=== PATIENT | female | born 1945 | race Two or more races ===

== ENCOUNTER 2023-02-03 01:20 | Inpatient (IN) | payer OTHER, MEDICAID ==
[2023-02-03] VITALS (9 sets, daily range): BP systolic 114; BP diastolic 55; PULSE 61–86; RESP 18–22; O2SAT 92–99
[~2023-02-03] VITALS: Ht 175.3 cm; Wt 87.5 kg
[2023-02-03] MEDS ORDERED: IPRATROPIUM BROM 0.5 MG/2.5ML INH SOL NEB ONE (02:30)
[2023-02-03] MEDS ORDERED: ALBUTEROL SULF 2.5 MG/0.5ML(0.5%) NEB SOLN NEB ONE ×2 (02:30→06:15)
[2023-02-03] MEDS ORDERED: ALBUTEROL MEDNEB 2.5 mg/3ml NEB ONE ×3 (02:30→07:43)
[2023-02-03 02:40] LABS: Hemoglobin 11.6 g/dL (12.2-16.2); Mean Corpuscular Hemoglobin 35.4 pg (28.0-32.0); Red Blood Cells 3.27 10^6/uL (4.0-5.20)
[2023-02-03 02:42] LABS: Hematocrit 35.7 % (36.0-46.0); Mean Corpuscular Hgb Conc. 32.4 g/dL (32.0-36.0); Mean Corpuscular Volume 109.3 fL (80.0-100.0); Red Cell Distribution Width 16.6 % (11.8-14.3)
[2023-02-03 02:58] LABS: Alanine Aminotransferase 11 U/L (7-40); Albumin 4.7 g/dL (3.2-4.8); Alkaline Phosphatase 149 U/L (46-116); Anion Gap 8 (5-15); Aspartate Aminotransferase 20 U/L (13-40); BUN/Creatinine Ratio 2.3 (10.0-20.0); Bilirubin, Total 0.3 mg/dL (0.2-1.0); Blood Urea Nitrogen 13 mg/dL (9-23); Calcium 10.5 mg/dL (8.7-10.4); Carbon Dioxide 30 mmol/L (20-30); Chloride 100 mmol/L (98-107); Glucose 107 mg/dL (74-106); Potassium 3.7 mmol/L (3.5-5.1); Sodium 138 mmol/L (136-145); Total Protein 7.7 g/dL (5.7-8.2)
[2023-02-03 03:16] LABS: Band Neutrophils % (manual) 0; Basophils % (manual) 0 (0.0-2.0); Blast Cells 0; Metamyelocytes % 0; Myelocytes % 0; Promyelocytes % 0; Reactive Lymphocytes 0
[2023-02-03 03:26] LABS: INR 1.04 (0.9-1.15); Partial Thromboplastin Time 28.5 SEC (24.5-34.5); Prothrombin Time 10.9 sec (9.3-11.8)
[2023-02-03 03:30] LABS: COVID19 ANTIGEN SOFIA FIA NEGATIVE (NEGATIVE); Rapid Influenza A Negative (Negative); Rapid Influenza B Negative (Negative)
[2023-02-03 04:13] LABS: Eosinophils % (manual) 32 (0-7); Lymphocytes % (manual) 34 (10.0-50.0); Monocytes % (manual) 14 (0-12); Platelet Estimate Adequate
[2023-02-03] MEDS ORDERED: guaiFENesin-DM 100/10mg/5ml SYR PO ONE (04:30)
[2023-02-03] MEDS ORDERED: methylPREDNISolone SOD SUCC 125 MG/2 ML VL IV ONE ×2 (05:30→09:30)
[2023-02-03] MEDS ORDERED: VANCOMYCIN 1GM/250ML 250 ML IV ONE (05:30)
[2023-02-03] MEDS ORDERED: PIPERACILLIN-TAZOB 3.375GM 100 ML IV ONE (05:30)
[2023-02-03] MEDS ORDERED: IPRATROPIUM BROM 0.5 MG/2.5ML INH SOL HHN ONE (07:30)
[2023-02-03] MEDS ORDERED: ALBUTEROL SULF 2.5 MG/0.5ML(0.5%) NEB SOLN HHN ONE (07:30)
[2023-02-03] MEDS ORDERED: IPRATROPIUM BROM 0.5 MG/2.5ML INH SOL ONE (07:43)
[2023-02-03] MEDS: ALBUTEROL MEDNEB 2.5 mg/3ml NEB NEB SCH ×4 (08:10→22:06)
[2023-02-03] MEDS: IPRATROPIUM BROM 0.5 MG/2.5ML INH SOL NEB SCH ×4 (08:10→22:06)
[2023-02-03] MEDS ORDERED: SODIUM CHLORIDE 0.9% 1,000 ML IV SCH (09:15)
[2023-02-03] MEDS ORDERED: ACETAMINOPHEN 325 MG TAB PO PRN ×2 (09:15→09:30)
[2023-02-03] MEDS ORDERED: ALBU108A5 PO (09:26)
[2023-02-03] MEDS ORDERED: SEVE800T10 PO (09:26)
[2023-02-03] MEDS ORDERED: ISOS10TA5 PO (09:27)
[2023-02-03] MEDS ORDERED: DOCU100C PO (09:27)
[2023-02-03] MEDS ORDERED: ISOS5TAB PO (09:27)
[2023-02-03] MEDS ORDERED: GUAI600T76 PO (09:27)
[2023-02-03] MEDS ORDERED: B-CO-6 PO (09:27)
[2023-02-03] MEDS ORDERED: ALLO300T2 PO (09:27)
[2023-02-03] MEDS ORDERED: BENZ100C97 PO (09:27)
[2023-02-03] MEDS ORDERED: ATOR-47 PO (09:27)
[2023-02-03] MEDS ORDERED: TRIA0.1O TOP (09:27)
[2023-02-03] MEDS ORDERED: MIDO5TAB4 PO (09:27)
[2023-02-03] MEDS ORDERED: ALBUTEROL MEDNEB 2.5 mg/3ml NEB NEB PRN (09:45)
[2023-02-03] MEDS ORDERED: ENOXAPARIN SOD 40 MG/0.4 ML SYRINGE SC SCH ×2 (10:00)
[2023-02-03] MEDS: SODIUM CHLORIDE 0.9% 1,000 ML IV SCH (12:18)
[2023-02-03] MEDS: SEVELAMER 800 MG TAB PO SCH ×2 (12:18→18:11)
[2023-02-03] MEDS: DOCUSATE SOD 100 MG CAP PO SCH ×2 (12:18→22:15)
[2023-02-03] MEDS: HEPARIN SODIUM (PORCINE) 5000 UNITS/ML 1ML VIAL SC SCH ×2 (12:19→22:24)
[2023-02-03] MEDS: B-COMPLEX W/ C & FOLIC ACID(NEPHROVITE TAB) PO SCH (12:20)
[2023-02-03 15:49] LABS: Triglycerides 92 mg/dL (< 150)
[2023-02-03 15:50] LABS: LDL Cholesterol 65 mg/dL (< 100)
[2023-02-03 15:51] LABS: Cholesterol 140 mg/dL (< 200); HDL Cholesterol 58 mg/dL (40-59)
[2023-02-03] MEDS: methylPREDNISolone SOD SUCC 40 MG/ML VL IV SCH (22:14)
[2023-02-03] MEDS: ATORVASTATIN 20 MG TAB PO SCH (22:15)
[2023-02-04] VITALS (20 sets, daily range): BP systolic 89–116; BP diastolic 46–58; PULSE 17–81; RESP 17–20; TEMP 97.9–99.1; O2SAT 93–100
[2023-02-04] MEDS: IPRATROPIUM BROM 0.5 MG/2.5ML INH SOL NEB SCH ×6 (02:34→22:19)
[2023-02-04] MEDS: ALBUTEROL MEDNEB 2.5 mg/3ml NEB NEB SCH ×6 (02:34→22:19)
[2023-02-04] MEDS: guaiFENesin-DM 100/10mg/5ml SYR PO PRN ×2 (02:41→15:43)
[2023-02-04] MEDS: SODIUM CHLORIDE 0.9% 1,000 ML IV SCH ×2 (02:41→18:36)
[2023-02-04 05:52] LABS: Basophils # (auto) 0 10 ^3/uL (0-0.2); Basophils % (auto) 0.1 % (0.0-2.0); Eosinophils # (auto) 0 10 ^3/uL (0-0.8); Hemoglobin 10.1 g/dL (12.2-16.2); Monocytes # (auto) 0.2 10 ^3/uL (0-1.3); Red Blood Cells 2.81 10^6/uL (4.0-5.20)
[2023-02-04 05:55] LABS: Hematocrit 30.4 % (36.0-46.0); Lymphocytes # (auto) 0.7 10 ^3/uL (0.4-5.4); Mean Corpuscular Hemoglobin 35.8 pg (28.0-32.0); Mean Corpuscular Hgb Conc. 33.1 g/dL (32.0-36.0); Mean Corpuscular Volume 108.3 fL (80.0-100.0); Monocytes % (auto) 3.5 % (0.0-12.0); Neutrophils % (auto) 81.4 % (37.0-80.0); Nucleated Red Blood Cells % 0.4 %; Red Cell Distribution Width 16.3 % (11.8-14.3)
[2023-02-04 06:03] LABS: Alanine Aminotransferase 11 U/L (7-40); Albumin 4.1 g/dL (3.2-4.8); Alkaline Phosphatase 119 U/L (46-116); Anion Gap 7 (5-15); Aspartate Aminotransferase 16 U/L (13-40); BUN/Creatinine Ratio 3.6 (10.0-20.0); Calcium 10.3 mg/dL (8.7-10.4); Carbon Dioxide 30 mmol/L (20-30); Chloride 98 mmol/L (98-107); Glucose 149 mg/dL (74-106); Potassium 4.4 mmol/L (3.5-5.1); Sodium 135 mmol/L (136-145)
[2023-02-04 06:04] LABS: Bilirubin, Total 0.2 mg/dL (0.2-1.0); Total Protein 6.9 g/dL (5.7-8.2)
[2023-02-04 06:25] LABS: Blood Urea Nitrogen 32 mg/dL (9-23)
[2023-02-04] MEDS ORDERED: SODIUM CHL 0.9% 1000 ML BAG XX ONE (07:00)
[2023-02-04] MEDS: SEVELAMER 800 MG TAB PO SCH ×3 (08:04→18:28)
[2023-02-04] MEDS: DOCUSATE SOD 100 MG CAP PO SCH ×2 (10:24→21:31)
[2023-02-04] MEDS: ISOSORBIDE DINITRATE 10 MG TAB PO SCH (10:25)
[2023-02-04] MEDS: methylPREDNISolone SOD SUCC 40 MG/ML VL IV SCH ×2 (10:25→23:29)
[2023-02-04] MEDS: B-COMPLEX W/ C & FOLIC ACID(NEPHROVITE TAB) PO SCH (10:25)
[2023-02-04] MEDS: HEPARIN SODIUM (PORCINE) 5000 UNITS/ML 1ML VIAL SC SCH ×2 (10:26→21:32)
[2023-02-04] MEDS ORDERED: DOXYCYCLINE 100MG/250ML 250 ML IV ONE (15:30)
[2023-02-04] MEDS: ATORVASTATIN 20 MG TAB PO SCH (21:31)
[2023-02-04] MEDS: DOXYCYCLINE 100MG/250ML 250 ML IV SCH (23:16)
[2023-02-05] VITALS (18 sets, daily range): BP systolic 84–140; BP diastolic 45–68; PULSE 61–87; RESP 17–20; TEMP 97.5–98.7; O2SAT 94–100
[2023-02-05] MEDS: ALBUTEROL MEDNEB 2.5 mg/3ml NEB NEB SCH ×6 (02:02→22:31)
[2023-02-05] MEDS: IPRATROPIUM BROM 0.5 MG/2.5ML INH SOL NEB SCH ×6 (02:02→22:31)
[2023-02-05] MEDS: methylPREDNISolone SOD SUCC 40 MG/ML VL IV SCH ×3 (05:12→20:52)
[2023-02-05] MEDS: ISOSORBIDE DINITRATE 10 MG TAB PO SCH (10:00)
[2023-02-05] MEDS: SEVELAMER 800 MG TAB PO SCH ×3 (10:35→16:41)
[2023-02-05] MEDS: DOCUSATE SOD 100 MG CAP PO SCH ×2 (10:35→21:02)
[2023-02-05] MEDS: B-COMPLEX W/ C & FOLIC ACID(NEPHROVITE TAB) PO SCH (10:35)
[2023-02-05] MEDS: DOXYCYCLINE 100MG/250ML 250 ML IV SCH ×2 (10:36→21:04)
[2023-02-05] MEDS: HEPARIN SODIUM (PORCINE) 5000 UNITS/ML 1ML VIAL SC SCH ×2 (10:48→21:10)
[2023-02-05] MEDS: SODIUM CHLORIDE 0.9% 1,000 ML IV SCH (11:30)
[2023-02-05] MEDS: guaiFENesin-DM 100/10mg/5ml SYR PO PRN (16:41)
[2023-02-05] MEDS: ATORVASTATIN 20 MG TAB PO SCH (21:02)
[2023-02-06] VITALS (17 sets, daily range): BP systolic 104–136; BP diastolic 38–51; PULSE 60–80; RESP 14–20; TEMP 97.9–98.4; O2SAT 93–100
[2023-02-06] MEDS: guaiFENesin-DM 100/10mg/5ml SYR PO PRN ×4 (00:31→23:27)
[2023-02-06] MEDS: ALBUTEROL MEDNEB 2.5 mg/3ml NEB NEB SCH ×6 (02:22→22:49)
[2023-02-06] MEDS: IPRATROPIUM BROM 0.5 MG/2.5ML INH SOL NEB SCH ×6 (02:22→22:49)
[2023-02-06] MEDS: SODIUM CHLORIDE 0.9% 1,000 ML IV SCH (04:10)
[2023-02-06] MEDS: methylPREDNISolone SOD SUCC 40 MG/ML VL IV SCH ×3 (05:01→23:12)
[2023-02-06 07:08] LABS: Basophils # (auto) 0 10 ^3/uL (0-0.2); Eosinophils # (auto) 0 10 ^3/uL (0-0.8); Hemoglobin 10.5 g/dL (12.2-16.2); Lymphocytes # (auto) 0.9 10 ^3/uL (0.4-5.4); Mean Corpuscular Volume 109.1 fL (80.0-100.0); Monocytes # (auto) 0.3 10 ^3/uL (0-1.3); Neutrophils # (auto) 4.9 10 ^3/uL (1.6-8.6); Neutrophils % (auto) 80.6 % (37.0-80.0); White Blood Cell 6.1 10^3/uL (4.4-10.8)
[2023-02-06 07:10] LABS: Basophils % (auto) 0.1 % (0.0-2.0); Hematocrit 32.5 % (36.0-46.0); Lymphocytes % (auto) 14.8 % (10.0-50.0); Mean Corpuscular Hemoglobin 35.3 pg (28.0-32.0); Mean Corpuscular Hgb Conc. 32.3 g/dL (32.0-36.0); Monocytes % (auto) 4.5 % (0.0-12.0); Nucleated Red Blood Cells % 0.1 %; Red Blood Cells 2.97 10^6/uL (4.0-5.20); Red Cell Distribution Width 16.5 % (11.8-14.3)
[2023-02-06 07:34] LABS: Chloride 98 mmol/L (98-107); Potassium 4.4 mmol/L (3.5-5.1); Sodium 134 mmol/L (136-145)
[2023-02-06 07:35] LABS: Anion Gap 11 (5-15); Carbon Dioxide 25 mmol/L (20-30)
[2023-02-06 07:40] LABS: BUN/Creatinine Ratio 4.9 (10.0-20.0); Blood Urea Nitrogen 43 mg/dL (9-23); Glucose 113 mg/dL (74-106)
[2023-02-06 07:41] LABS: Magnesium 2.3 mg/dL (1.6-2.6)
[2023-02-06 07:42] LABS: Phosphorus 3.9 mg/dL (2.4-5.1)
[2023-02-06] MEDS: SEVELAMER 800 MG TAB PO SCH ×3 (08:00→17:32)
[2023-02-06 08:26] LABS: % Iron Saturation 57.8 % (15-50)
[2023-02-06] MEDS: B-COMPLEX W/ C & FOLIC ACID(NEPHROVITE TAB) PO SCH (08:56)
[2023-02-06] MEDS: ISOSORBIDE DINITRATE 10 MG TAB PO SCH (08:57)
[2023-02-06] MEDS: DOCUSATE SOD 100 MG CAP PO SCH ×2 (08:58→22:38)
[2023-02-06] MEDS: DOXYCYCLINE 100MG/250ML 250 ML IV SCH ×2 (08:58→23:12)
[2023-02-06] MEDS: HEPARIN SODIUM (PORCINE) 5000 UNITS/ML 1ML VIAL SC SCH ×2 (09:09→22:44)
[2023-02-06 10:14] LABS: Folate (Folic Acid) > 24.00 ng/mL (>5.38)
[2023-02-06 10:15] LABS: Ferritin 1120.8 ng/mL (10-291)
[2023-02-06] MEDS: ATORVASTATIN 20 MG TAB PO SCH (22:38)
[2023-02-07] VITALS (8 sets, daily range): BP systolic 102–137; BP diastolic 34–71; PULSE 60–80; RESP 14–19; TEMP 97.9–98; O2SAT 93–100
[2023-02-07] MEDS: IPRATROPIUM BROM 0.5 MG/2.5ML INH SOL NEB SCH ×4 (02:51→14:07)
[2023-02-07] MEDS: ALBUTEROL MEDNEB 2.5 mg/3ml NEB NEB SCH ×4 (02:51→14:07)
[2023-02-07] MEDS: methylPREDNISolone SOD SUCC 40 MG/ML VL IV SCH (05:24)
[2023-02-07] MEDS: guaiFENesin-DM 100/10mg/5ml SYR PO PRN (05:25)
[2023-02-07 06:56] LABS: Chloride 95 mmol/L (98-107); Potassium 5.2 mmol/L (3.5-5.1)
[2023-02-07 06:57] LABS: Anion Gap 14 (5-15); Carbon Dioxide 20 mmol/L (20-30)
[2023-02-07 06:58] LABS: Calcium 9.4 mg/dL (8.7-10.4)
[2023-02-07] MEDS ORDERED: SODIUM CHL 0.9% 1000 ML BAG XX ONE (07:00)
[2023-02-07 07:02] LABS: Glucose 122 mg/dL (74-106)
[2023-02-07 07:04] LABS: Magnesium 2.2 mg/dL (1.6-2.6)
[2023-02-07 07:05] LABS: Phosphorus 4.2 mg/dL (2.4-5.1)
[2023-02-07 07:08] LABS: Basophils # (auto) 0 10 ^3/uL (0-0.2); Eosinophils # (auto) 0 10 ^3/uL (0-0.8); Eosinophils % (auto) 0.1 % (0.0-7.0); Hematocrit 32.5 % (36.0-46.0); Hemoglobin 10.5 g/dL (12.2-16.2); Nucleated Red Blood Cells % 0.2 %; Red Blood Cells 2.87 10^6/uL (4.0-5.20)
[2023-02-07 07:11] LABS: Basophils % (auto) 0.1 % (0.0-2.0); Lymphocytes % (auto) 16.3 % (10.0-50.0); Mean Corpuscular Hemoglobin 36.4 pg (28.0-32.0); Mean Corpuscular Hgb Conc. 32.2 g/dL (32.0-36.0); Mean Corpuscular Volume 113.1 fL (80.0-100.0); Monocytes # (auto) 0.3 10 ^3/uL (0-1.3); Monocytes % (auto) 4.2 % (0.0-12.0); Neutrophils % (auto) 79.3 % (37.0-80.0); Red Cell Distribution Width 17.1 % (11.8-14.3); White Blood Cell 6.4 10^3/uL (4.4-10.8)
[2023-02-07 07:37] LABS: Blood Urea Nitrogen 59 mg/dL (9-23)
[2023-02-07 07:44] LABS: BUN/Creatinine Ratio 5.5 (10.0-20.0); Sodium 129 mmol/L (136-145)
[2023-02-07] MEDS ORDERED: ALBUMIN 25% 100 ML IV PRN (07:45)
[2023-02-07] MEDS: SEVELAMER 800 MG TAB PO SCH ×2 (08:24→11:54)
[2023-02-07] MEDS ORDERED: DOXY-286 PO (09:59)
[2023-02-07] MEDS ORDERED: METH4PAK PO (09:59)
[2023-02-07] MEDS: B-COMPLEX W/ C & FOLIC ACID(NEPHROVITE TAB) PO SCH (10:00)
[2023-02-07] MEDS: DOXYCYCLINE 100MG/250ML 250 ML IV SCH (10:00)
[2023-02-07] MEDS: ISOSORBIDE DINITRATE 10 MG TAB PO SCH (10:00)
[2023-02-07] MEDS: HEPARIN SODIUM (PORCINE) 5000 UNITS/ML 1ML VIAL SC SCH (10:00)
[2023-02-07] MEDS: DOCUSATE SOD 100 MG CAP PO SCH (10:00)
[2023-02-09 08:54] LABS: Hepatitis B Surface Antibody Negative (Negative)
[2023-02-09 09:58] LABS: Hepatitis B Core IgM Negative; Hepatitis B Surface Antigen Negative (Negative)
== END 2023-02-07 14:30 | disposition home or self-care (01) | DRG 189 ==
LOC: ER 01:20 → TELE 09:23 → TELE-CENTR 02-04 02:06
PROVIDERS: ADMIT Internal Medicine Geriatric Medicine; ATTEND Student in an Organized Health Care Education/Training Program
PROC: 5A1D70Z Performance of Urinary Filtration, Intermittent, Less than 6 Hours Per Day (ICD-10-PCS; principal; 2023-02-04)
PROC: 5A1D70Z Performance of Urinary Filtration, Intermittent, Less than 6 Hours Per Day (ICD-10-PCS; 2023-02-07)
DX: J96.20 Acute and chronic respiratory failure, unspecified whether with hypoxia or hypercapnia (principal); N18.6 End stage renal disease; J44.1 Chronic obstructive pulmonary disease with (acute) exacerbation; J44.0 Chronic obstructive pulmonary disease with (acute) lower respiratory infection; N18.9 Chronic kidney disease, unspecified; Z20.822 Contact with and (suspected) exposure to COVID-19; Z99.2 Dependence on renal dialysis; E66.01 Morbid (severe) obesity due to excess calories; E78.5 Hyperlipidemia, unspecified; Z68.28 Body mass index [BMI] 28.0-28.9, adult; Z99.81 Dependence on supplemental oxygen; Z95.0 Presence of cardiac pacemaker
CPT/HCPCS: 36415; 36600; 71045; 80048; 80053; 80061; 82607; 82728; 82746; 82805; 83036; 83540; 83550; 83735; 83880; 84100; 84443; 84484; 85007; 85025; 85027; 85610; 85730; 86705; 86706; 87081; 87340; 87426; 87804; 90935; 93005; 94010; 94640; G0378; J2543; J3490; P9047